=== PATIENT | female | born 1970 | race African-American/Black ===

== ENCOUNTER 2017-03-31 02:16 | Emergency (ER) | payer OTHER ==
[~2017-03-31] VITALS: Ht 165.1 cm; Wt 88.5 kg
[2017-03-31 02:16] VITALS: BP_SYST 124
--- NOTE | 2017-03-31 02:16 | NUR ---
Patient to ER bed 1 to gown for evaluation. Side rails up. Report given to ROSAS SAXENA.
--- NOTE | 2017-03-31 02:20 | NUR ---
Pt was brought in by ALS for possible ETOH intoxication. Upon arriral, pt was altered times 0 and responding only to pain. Pt had vomit on her clothes and had been throwing up. had caught and assist her to groud before calling 911. stated she had drank 10 "shooters". He denies any ingestion of anything else. Airway patent. Pt was given 4 mg of Zofran and started a 20 G IV in the L hand. Will continue to monitor. No distress noted.
--- NOTE | 2017-03-31 02:25 | NUR ---
KENTRELL Emerson at bedside examining patient.
[2017-03-31] MEDS ORDERED: NACL 0.9% 1,000 ML IV ONE (02:45)
[2017-03-31] MEDS ORDERED: METOCLOPRAMIDE HCL 10 MG/2 ML VIAL IVP ONE (02:45)
--- NOTE | 2017-03-31 02:45 | NUR ---
Claudia lacy in [facility] - 03/31/17 at 0749 by ANNA MARIE No adverse reactions noted. Will continue to monitor.
--- NOTE | 2017-03-31 03:30 | NUR ---
No adverse reactions noted. Will continue to monitor.
[2017-03-31 05:40] VITALS: BP_SYST 108
--- NOTE | 2017-03-31 05:40 | NUR ---
Patient given written and verbal discharge instructions and verbalizes understanding. ER MD discussed with patient the results and treatment provided. Patient in stable condition. ID arm band removed. IV catheter removed intact and dressing applied, no active bleeding. Patient educated on pain management and to follow up with PMD. Pain Scale 0/10. Opportunity for questions provided and answered.
== END 2017-03-31 05:40 | disposition home or self-care (01) ==
LOC: SED 02:16
DX: F10.129 Alcohol abuse with intoxication, unspecified (principal)
CPT/HCPCS: 70450; 82962; 96361; 96374; 99284; J2765; J7030